=== PATIENT | male | born 1985 | race Caucasian/White ===

== ENCOUNTER 2019-09-14 15:55 | Emergency (ER) | payer SELFPAY ==
[~2019-09-14] VITALS: Ht 167.6 cm; Wt 86.2 kg
[2019-09-14 15:58] VITALS: BP 139/100
--- NOTE | 2019-09-14 16:00 | NUR ---
PT AMB TO BED 3.
--- NOTE | 2019-09-14 16:20 | NUR ---
PT PRESENTS TO THE ED WITH C/O L EYE DISCOMFORT. PT STATES THAT HE WAS CUTTING WOOD AND WEARING SAFETY GOGGLES, WHEN PT REMOVED SAFETY GOOGLES HE FEEL SOMETHING FALL INTO EYE. PT IS UNAWARE OF WHAT WENT INTO EYE. PT STATES EYE PAIN FEELS LIKE "SCRATCHING" AND RATES EYE DISCOMFORT 8/10 AT THIS TIME. PT PRESENTS WITH A CLEAR SPEECH AND IS CONVERSING APPROPRIATELY. SKIN IS PINK, WARM, AND DRY. PT DENIES N/V/D, CP, AND SOB AT THIS TIME. AT BEDSIDE. PT POSITIONED FOR COMFORT, HOB ELVATED, LIGHTS DIMMED, BED RAIL UP X 1. ER MD TO SEE PT. NKA HX: DENIES RX: DENIES
[2019-09-14] MEDS ORDERED: FLUORESCEIN OPTH STRIP 1 MG OP ONE (16:25)
[2019-09-14] MEDS ORDERED: TETRACAINE HCL/PF 0.5% OPTH 4 ML BTL OP ONE (16:25)
--- NOTE | 2019-09-14 16:47 | NUR ---
BE 20/20, LEFT EYE 20/70, RIGHT EYE 20/30
--- NOTE | 2019-09-14 16:54 | NUR ---
Patient being evaluated by physician PAINTING SUPERVISOR MAXINE at bedside.
--- NOTE | 2019-09-14 17:12 | NUR ---
Patient discharged with v/s stable. Written and verbal after care instructions given and explained. Patient alert, oriented and verbalized understanding of instructions. Ambulatory with steady gait. All questions addressed prior to discharge. ID band removed. Patient advised to follow up with PMD. Rx of GENTAMICIN AND IBUPROFEN given. Patient educated on indication of medication including possible reaction and side effects. Opportunity to ask questions provided and answered.
[2019-09-14 17:13] VITALS: BP 132/98
== END 2019-09-14 17:12 | disposition home or self-care (01) ==
LOC: MED 15:55
DX: S05.02XA Injury of conjunctiva and corneal abrasion without foreign body, left eye, initial encounter (principal); X58.XXXA Exposure to other specified factors, initial encounter; Y93.89 Activity, other specified; Y92.89 Other specified places as the place of occurrence of the external cause
CPT/HCPCS: 99283

== ENCOUNTER 2021-12-04 11:31 | Emergency (ER) | payer SELFPAY ==
[~2021-12-04] VITALS: Ht 160 cm; Wt 82.1 kg
[2021-12-04 11:35] VITALS: BP 132/64
[2021-12-04] MEDS ORDERED: FLUORESCEIN OPTH STRIP 1 MG OP ONE (11:50)
[2021-12-04] MEDS ORDERED: TETRACAINE HCL/PF 0.5% OPTH 4 ML BTL OP ONE (11:50)
--- NOTE | 2021-12-04 12:12 | NUR ---
36/M PRESENTS TO ED WITH C/O LEFT EYE PAIN, REDNESS AND SWELLING SINCE YESTERDAY. PATIENT STATES HE WAS CUTTING PIECES OF PLASTICS AT HOME TO RECYCLE WHEN HE FELT A PIECE GET INTO HIS EYE. PATIENT STATES IN THE EVENING HIS EYE FELT FINE BUT WOKE UP WITH PAIN REDNESS AND SWELLING TODAY. PATIENT DENIES DISCHARGE BUT STATES EYE IS TEARING UP, DENIES CHANGES IN VISION BUT STATES HE FEELS SOMETHING IN HIS EYE WHEN LOOKING AROUND. DENIES TAKING ANY MEDICATION AT HOME PRIOR TO ARRIVAL.
[2021-12-04] MEDS ORDERED: OFLOS LEFT EYE (12:40)
[2021-12-04] MEDS ORDERED: IBUP-1842 PO (12:40)
[2021-12-04 12:51] VITALS: BP 132/64
--- NOTE | 2021-12-04 12:51 | NUR ---
Patient discharged with v/s stable. Written and verbal after care instructions ABOUT CORNEAL ABRASION given and explained. Patient alert, oriented and verbalized understanding of instructions. Ambulatory with steady gait. All questions addressed prior to discharge. ID band removed. Patient advised to follow up with PMD. Rx of MOTRIN AND OCUFLOX given. Patient educated on indication of medication including possible reaction and side effects. Opportunity to ask questions provided and answered.
== END 2021-12-04 12:51 | disposition home or self-care (01) ==
LOC: MED 11:31
DX: S05.02XA Injury of conjunctiva and corneal abrasion without foreign body, left eye, initial encounter (principal); Z79.2 Long term (current) use of antibiotics; Z79.1 Long term (current) use of non-steroidal anti-inflammatories (NSAID); X58.XXXA Exposure to other specified factors, initial encounter; Y92.89 Other specified places as the place of occurrence of the external cause; Y93.89 Activity, other specified; Y99.8 Other external cause status
CPT/HCPCS: 99283